=== PATIENT | male | born 1970 | race Two or more races ===

== ENCOUNTER 2017-12-11 21:50 | Inpatient (IN) | payer OTHER ==
[~2017-12-11] VITALS: Ht 182.9 cm; Wt 117.9 kg
[2017-12-11] MEDS ORDERED: FOLIC ACID0.4 MG (22:01)
[2017-12-11] MEDS ORDERED: ASPIR 8181 MG (22:01)
[2017-12-17] MEDS ORDERED: CIPRO500 MG PO (14:18)
[2017-12-17] MEDS ORDERED: FLAGYL500MG PO (14:18)
[2017-12-17] MEDS ORDERED: INTESTINEX680 M1 PO (14:19)
[2017-12-17] MEDS ORDERED: ZANTAC150 MG PO (14:19)
== END 2017-12-17 14:37 | disposition home or self-care (01) | DRG 392 ==
LOC: ER 21:50 → SURG 12-12 11:07 → SEC-K 12-12 11:07 → SURG 12-12 11:07 → MEDI 12-12 11:46 → SURG 12-12 14:14
PROC: 3E0336Z Introduction of Nutritional Substance into Peripheral Vein, Percutaneous Approach (ICD-10-PCS; principal; 2017-12-12)
PROC: 02HV33Z Insertion of Infusion Device into Superior Vena Cava, Percutaneous Approach (ICD-10-PCS; 2017-12-13)
DX: K57.20 Diverticulitis of large intestine with perforation and abscess without bleeding (principal); D68.52 Prothrombin gene mutation; I10 Essential (primary) hypertension; I87.2 Venous insufficiency (chronic) (peripheral); N20.0 Calculus of kidney; G43.809 Other migraine, not intractable, without status migrainosus

== ENCOUNTER 2019-03-02 14:35 | Emergency (ER) | payer OTHER ==
[~2019-03-02] VITALS: Ht 182.9 cm; Wt 113.4 kg
[~2019-03-02 14:35] MED LIST: ASPIR 8181 MG; CIPRO500 MG PO; FLAGYL500MG PO; FOLIC ACID0.4 MG; INTESTINEX680 M1 PO; ZANTAC150 MG PO
[2019-03-02] MEDS ORDERED: METFORMIN HCL500 M3 (14:49)
== END 2019-03-02 17:36 | disposition home or self-care (01) ==
LOC: ER 14:35
DX: R10.31 Right lower quadrant pain (principal)

== ENCOUNTER 2021-03-20 09:00 | Outpatient (CLI) | payer OTHER ==
[~2021-03-20 09:00] MED LIST changes: +METFORMIN HCL500 M3
== END 2021-03-20 09:15 | disposition home or self-care (01) ==
LOC: PPH VACUNA 09:00
PROVIDERS: ATTEND Emergency Medicine Pediatric Emergency Medicine
DX: Z23 Encounter for immunization (principal)